=== PATIENT | female | born 1955 | race Caucasian/White ===

== ENCOUNTER 2017-12-05 15:19 | Outpatient (CLI) | payer OTHER | END 2017-12-05 15:20 | disposition home or self-care (01) | LOC: BICMAMMO 15:19 | PROVIDERS: ATTEND Family Medicine | DX: Z12.31 Encounter for screening mammogram for malignant neoplasm of breast (principal) | CPT/HCPCS: 77063; 77067 ==

== ENCOUNTER 2018-11-02 16:49 | Emergency (ER) | payer MEDICARE, OTHER ==
[2018-11-02] MEDS ORDERED: Morphine 4 MG/ML VIAL ONE (18:23)
[2018-11-02] MEDS ORDERED: Ondansetron PF 4 MG/2 ML Vial ONE (18:24)
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
--- NOTE | 2018-11-02 18:59 | CT ---
CT THORACIC SPINE WITHOUT CONTRAST: History: Trauma Comparison: None. FINDINGS: The transverse processes are intact. The posterior ribs are intact. Spinus processes are intact. No facet joint widening. No compression fracture. No evidence of distraction. Mild right sided hydronephrosis. IMPRESSION: 1. No acute fracture of the thoracic spine. 2. Mild right sided hydronephrosis. POS: [facility]
== END 2018-11-02 19:45 | disposition home or self-care (01) ==
LOC: ERS 16:49
DX: Z04.1 Encounter for examination and observation following transport accident (principal); N13.30 Unspecified hydronephrosis; E78.5 Hyperlipidemia, unspecified; V03.90XA Pedestrian on foot injured in collision with car, pick-up truck or van, unspecified whether traffic or nontraffic accident, initial encounter; Y92.481 Parking lot as the place of occurrence of the external cause
CPT/HCPCS: 70450; 72100; 72125; 72128; 96374; 96375; J2270; J2405

== ENCOUNTER 2018-12-11 12:39 | Outpatient (CLI) | payer OTHER ==
--- NOTE | 2018-12-11 13:48 | ULT ---
Bilateral renal ultrasound CLINICAL INDICATION: Renal Insufficiency COMPARISON: None FINDINGS: Right kidney: No solid mass, or hydronephrosis. Left kidney: No solid mass, or hydronephrosis. Urinary bladder: Normal IMPRESSION: Unremarkable exam.
--- NOTE | 2018-12-11 15:50 | MMO ---
Bilateral MAMMO Bilat Screen [facility]. CLINICAL HISTORY: Patient is 63 years old and is seen for screening. The patient has the following family history of breast cancer: maternal aunt, malignant (generic), GREAT AUNT. The patient has no personal history of cancer. VIEWS: The views performed were: bilateral craniocaudal with tomosynthesis and bilateral mediolateral oblique with tomosynthesis. FILMS COMPARED: The present examination has been compared to prior imaging studies performed at 07/22/2016, and at [facility] on 12/05/2017. MAMMOGRAM FINDINGS: There are scattered fibroglandular densities. There are stable benign appearing calcifications seen in both breasts. There are no suspicious masses, suspicious calcifications, or new areas of architectural distortion. IMPRESSION: THERE IS NO MAMMOGRAPHIC EVIDENCE OF MALIGNANCY. A ROUTINE FOLLOW-UP MAMMOGRAM IN 1 YEAR IS RECOMMENDED. THE RESULTS OF THIS EXAM WERE SENT TO THE PATIENT. ACR BI-RADS Category 2 - Benign finding MAMMOGRAPHY NOTE: 1. A negative mammogram report should not delay a biopsy if a dominant of clinically suspicious mass is present. 2. Approximately 10% to 15% of breast cancers are not detected by mammography. 3. Adenosis and dense breasts may obscure an underlying neoplasm.
== END 2018-12-11 12:40 | disposition home or self-care (01) ==
LOC: BICULT 12:39
PROVIDERS: ATTEND Family Medicine
DX: Z12.31 Encounter for screening mammogram for malignant neoplasm of breast (principal); N13.30 Unspecified hydronephrosis; Z80.3 Family history of malignant neoplasm of breast
CPT/HCPCS: 76770; 77063; 77067

== ENCOUNTER 2019-03-18 11:48 | Outpatient (CLI) | payer OTHER ==
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
== END 2019-03-18 11:49 | disposition home or self-care (01) ==
LOC: BICRAD 11:48
PROVIDERS: ATTEND Family Medicine
DX: S20.211A Contusion of right front wall of thorax, initial encounter (principal); S00.83XA Contusion of other part of head, initial encounter
CPT/HCPCS: 70150

== ENCOUNTER 2021-03-06 07:30 | Day surgery (SDC) | payer MEDICARE ==
[2021-03-05 14:54] VITALS: BMI 31.8
[2021-03-06] MEDS ORDERED: Ketorolac Tromethamine 30 MG/ML VIAL ONE ×2 (09:05→12:53)
[2021-03-06] MEDS ORDERED: Acetaminophen 500 MG TAB ONE (09:05)
[2021-03-06] MEDS ORDERED: Isosulfan Blue 50 MG/5 ML VIAL ONE (11:20)
[2021-03-06] MEDS ORDERED: Bupivacaine 0.25% HCL 30 ML VIAL ONE (11:20)
[2021-03-06] MEDS ORDERED: Lidocaine 1% w/Epinephrine 1:100K 20 ML VIAL ONE (11:20)
[2021-03-06] MEDS ORDERED: Dexmedetomidine 200 MCG/2 ML VIAL ONE (12:48)
[2021-03-06] MEDS ORDERED: Fentanyl 100 MCG/2 ML VIAL ONE ×2 (12:48→15:07)
[2021-03-06] MEDS ORDERED: Lidocaine 1% PF 5 ML VIAL ONE (12:53)
[2021-03-06] MEDS ORDERED: PROPOFOL 200 MG/20 ML VIAL ONE (12:53)
[2021-03-06] MEDS ORDERED: Metoclopramide HCl 10 MG/2 ML VIAL ONE (12:53)
[2021-03-06] MEDS ORDERED: Ondansetron PF 4 MG/2 ML Vial ONE (12:53)
[2021-03-06] MEDS ORDERED: PHENYLEPHRINE-NS 100 MCG/ML 10 ML SYRINGE ONE (12:53)
[2021-03-06] MEDS ORDERED: ePHEDrine Sulfate 50 MG/10 ML VIAL ONE (12:53)
[2021-03-06] MEDS ORDERED: HYDROcodone/Acetaminophen 5/325 mg Tablet ONE (16:51)
== END 2021-03-06 17:40 | disposition home or self-care (01) ==
LOC: NM 07:30 → SDC 17:40
PROVIDERS: ATTEND Specialist
PROC: 0JH60WZ Insertion of Totally Implantable Vascular Access Device into Chest Subcutaneous Tissue and Fascia, Open Approach (ICD-10-PCS; principal; 2021-03-06)
PROC: 02HV33Z Insertion of Infusion Device into Superior Vena Cava, Percutaneous Approach (ICD-10-PCS; 2021-03-06)
PROC: 0HBU0ZZ Excision of Left Breast, Open Approach (ICD-10-PCS; 2021-03-06)
PROC: 07B60ZX Excision of Left Axillary Lymphatic, Open Approach, Diagnostic (ICD-10-PCS; 2021-03-06)
DX: C50.312 Malignant neoplasm of lower-inner quadrant of left female breast (principal); G43.909 Migraine, unspecified, not intractable, without status migrainosus; Z17.0 Estrogen receptor positive status [ER+]; Z79.82 Long term (current) use of aspirin; Z79.899 Other long term (current) drug therapy
CPT/HCPCS: 19301; 36561; 38525; 38900; 71045; 76098; 78195; 88307; 88342; A9541; C1788; Q9968; J0690; J1642; J1885; J2405; J2704; J2765; J3010; S0020

== ENCOUNTER 2022-02-20 13:35 | Outpatient (CLI) | payer MEDICARE | END 2022-02-20 13:36 | disposition home or self-care (01) | LOC: BICMAMMO 13:35 | PROVIDERS: ATTEND Specialist | DX: C50.912 Malignant neoplasm of unspecified site of left female breast (principal) | CPT/HCPCS: 77066; G0279 ==

== ENCOUNTER 2022-12-30 14:59 | Emergency (ER) | payer MEDICARE ==
[2022-12-30 15:50] LABS: #Eosinphils 0.2 thou/uL (0.0-0.7); #Monocytes 0.7 thou/uL (0.11-0.59); #Neutrophils 3.9 thou/uL (1.40-6.50); %Basophils 0.6 % (0.0-1.0); %Eosinophils 3.8 % (0.0-10.0); %Lymphocytes 21.5 % (21.0-51.0); %Monocytes 11.8 % (0.0-10.0); %Neutrophils 62.1 % (42.0-75.0); Hemoglobin 12.6 g/dL (12.0-16.0); Mean Corpuscular HGB CONC 33.1 g/dL (32.0-36.0); Mean Corpuscular Hemoglobin 30.3 pg (27.0-31.0); Mean Corpuscular Volume 91.6 fl (78.0-98.0); Mean Platelet Volume 9.4 fL (7.4-10.4); Platelet Count 234 10x3/uL (130-400); RBC Distribution Width 12.7 % (11.5-14.5); Red Blood Cell (RBC) Count 4.16 mill/uL (4.20-5.40); White Blood Cell (WBC) Count 6.3 10x3/uL (4.8-10.8)
[2022-12-30 16:05] LABS: ALT (SGPT) 14 U/L (8-55); AST (SGOT) 19 U/L (5-34); Albumin 4.2 g/dL (3.4-4.8); Alkaline Phosphatase 85 U/L (40-110); Anion Gap 12 mmol/L (10-20); BUN (Urea Nitrogen) 10 mg/dL (9.8-20.1); Bilirubin, Total 0.3 mg/dL (0.2-1.2); Calc. Creatinine Clearance 0 mL/min (70-130); Calcium 8.9 mg/dL (7.8-10.44); Carbon Dioxide 27 mmol/L (23-31); Chloride 104 mmol/L (98-107); Estimated GFR 77; Globulin 2.6 g/dL (2.4-3.5); Glucose 98 mg/dL (80-115); Potassium 3.8 mmol/L (3.5-5.1); Protein, Total 6.8 g/dL (5.8-8.1); Sodium 139 mmol/L (136-145)
== END 2022-12-30 16:55 | disposition left against medical advice (07) ==
LOC: ERS 14:59
DX: Z53.29 Procedure and treatment not carried out because of patient's decision for other reasons (principal)
CPT/HCPCS: 36415; 80053; 85025

== ENCOUNTER 2023-05-23 15:29 | Outpatient (CLI) | payer MEDICARE | END 2023-05-23 15:30 | disposition home or self-care (01) | LOC: BICMAMMO 15:29 | PROVIDERS: ATTEND Internal Medicine Hematology & Oncology | DX: M85.89 Other specified disorders of bone density and structure, multiple sites (principal) | CPT/HCPCS: 77080 ==

== ENCOUNTER 2023-09-18 16:00 | Outpatient (CLI) | payer MEDICARE | END 2023-09-18 16:01 | disposition home or self-care (01) | LOC: SLEEPLAB 16:00 | PROVIDERS: ATTEND Otolaryngology Otolaryngic Allergy | DX: G47.33 Obstructive sleep apnea (adult) (pediatric) (principal) | CPT/HCPCS: 95811 ==

== ENCOUNTER 2024-03-08 13:55 | Outpatient (CLI) | payer MEDICARE | END 2024-03-08 13:56 | disposition home or self-care (01) | LOC: BICMAMMO 13:55 | PROVIDERS: ATTEND Specialist | DX: Z12.31 Encounter for screening mammogram for malignant neoplasm of breast (principal); Z85.3 Personal history of malignant neoplasm of breast; Z98.890 Other specified postprocedural states | CPT/HCPCS: 77063; 77067 ==

== ENCOUNTER 2024-09-17 13:15 | Outpatient (CLI) | payer MEDICARE | END 2024-09-17 13:16 | disposition home or self-care (01) | LOC: CT 13:15 | PROVIDERS: ATTEND Family Medicine | DX: R51.9 Headache, unspecified (principal) | CPT/HCPCS: 70450 ==